=== PATIENT | male | born 1980 | race Caucasian/White ===

== ENCOUNTER 2022-02-16 08:58 | Inpatient (IN) | payer OTHER ==
[~2022-02-16] VITALS: Ht 175.3 cm; Wt 93.0 kg
[2022-02-16] VITALS (12 sets, daily range): BP systolic 89–138
[2022-02-16] MEDS ORDERED: dilTIAZem HCL IVP 5 MG/ML VIAL IVP ONE ×2 (09:15→11:15)
[2022-02-16] MEDS ORDERED: DILTIAZEM HCL 60 MG TABLET PO ONE ×3 (09:15→11:15)
[2022-02-16 09:31] LABS: BASOPHILS # (AUTO) 0.1 K/uL (0.0-0.2); EOSINOPHILS # (AUTO) 0.1 K/uL (0.0-0.4); EOSINOPHILS % (AUTO) 0.9 % (0.0-4.0); HEMATOCRIT 43.6 % (36-54); HEMOGLOBIN 14.5 g/dL (14.0-18.0); LYMPHOCYTES # (AUTO) 4.6 K/uL (1.0-5.5); MEAN CORPUSCULAR HEMOGLOBIN 27 pg (27-31); MEAN CORPUSCULAR HGB CONC 33 % (32-36); MEAN CORPUSCULAR VOLUME 83 fL (79.0-98.0); MONOCYTES # (AUTO) 0.5 K/uL (0.0-1.0); MONOCYTES % (AUTO) 4.6 % (1.7-9.3); NEUTROPHILS % (AUTO) 48.5 % (40.0-70.0); PLATELET COUNT (AUTO) 359 K/uL (130-430); RED BLOOD CELL COUNT(AUTO) 5.28 MIL/uL (4.2-6.2); RED CELL DISTRIBUTION WIDTH 15.4 % (9.0-15.0); WHITE BLOOD COUNT (AUTO) 10.3 K/uL (4.8-10.8)
[2022-02-16 09:40] LABS: PROTHROMBIN TIME 9.9 SECS (9.5-12.5)
[2022-02-16 09:48] LABS: ANION GAP 11 (5-15); CALCIUM 9.6 mg/dL (8.4-11.0); CHLORIDE 102 mmol/L (98-107); CREATININE 0.98 mg/dL (0.55-1.30); GFR AFRICAN AMERICAN 109 mL/min (>90); GLUCOSE 109 mg/dL (70-99); POTASSIUM 3.6 mmol/L (3.5-5.1); SODIUM SERUM 138 mmol/L (136-145); TOTAL BILIRUBIN 0.6 mg/dL (0.0-1.0); UREA NITROGEN, BLOOD 11 mg/dL (8-21)
[2022-02-16 09:49] LABS: ALANINE AMINOTRANSFERASE 38 U/L (12-78); ALBUMIN 4.4 g/dL (3.4-4.8); ASPARTATE AMINOTRANSFERASE 19 U/L (10-37)
[2022-02-16] MEDS ORDERED: DIGOXIN 0.5 MG/2 ML AMP IVP ONE (13:00)
[2022-02-16] MEDS ORDERED: ASPIRIN 325 MG TABLET (ECOTRIN) PO ONE (13:30)
[2022-02-16] MEDS ORDERED: PANTOPRAZOLE SODIUM 40 MG TAB PO ONE (13:30)
[2022-02-16] MEDS ORDERED: AMIODARONE HCL 200 MG TABLET PO ONE (16:45)
[2022-02-16] MEDS ORDERED: NOR10 PO (16:51)
[2022-02-16] MEDS ORDERED: LIP20 PO (16:51)
[2022-02-16] MEDS ORDERED: LISI20TA30 PO (16:51)
[2022-02-16] MEDS ORDERED: DILTIAZEM HCL 60 MG TABLET PO SCH (18:00)
[2022-02-16 19:53] LABS: BILIRUBIN,URINE NEGATIVE (NEGATIVE); CLARITY/URINE CLEAR (CLEAR); COLOR,URINE YELLOW (YELLOW); GLUCOSE,URINE NEGATIVE (NEGATIVE); KETONES,URINE 1+ (NEGATIVE); LEUKOCYTE ESTERASE ,URINE NEGATIVE (NEGATIVE); NITRITE, URINE NEGATIVE (NEGATIVE); PROTEIN URINE TRACE (NEGATIVE); UROBILINOGEN,URINE 0.2 (0.2-1.0)
[2022-02-16 19:55] LABS: BLOOD, URINE TRACE (NEGATIVE)
[2022-02-16 19:58] LABS: BACTERIA,URINE None Seen /HPF (None Seen); RBC,URINE NONE SEEN /HPF (0-3); WBC,URINE 0-3 /HPF (0-3)
[2022-02-16 19:59] LABS: MUCUS,URINE None Seen /LPF (None Seen)
[2022-02-16] MEDS ORDERED: ENOXAPARIN SODIUM 100 MG/ML SYRINGE SUBCUT SCH (21:00)
[2022-02-16] MEDS ORDERED: ENOXAPARIN SODIUM 100 MG/ML SYRINGE ONE (21:05)
[2022-02-16] MEDS: AMIODARONE HCL 200 MG TABLET PO SCH (21:11)
[2022-02-16] MEDS ORDERED: MELATONIN 5 MG TABLET PO ONE (23:43)
[2022-02-16] MEDS: MELATONIN 5 MG TABLET PO SCH (23:46)
[2022-02-16] MEDS: NACL 0.9% 1,000 ML IV SCH (23:46)
[2022-02-16] MEDS: METOPROLOL TARTRATE 5 MG/5 ML AMPUL IVP PRN (23:47)
[2022-02-17] VITALS (25 sets, daily range): BP systolic 90–144
[2022-02-17] MEDS: METOPROLOL TARTRATE 5 MG/5 ML AMPUL IVP PRN (04:22)
[2022-02-17] MEDS: AMIODARONE HCL 200 MG TABLET PO SCH ×3 (06:22→21:05)
[2022-02-17 06:38] LABS: BASOPHILS # (AUTO) 0.1 K/uL (0.0-0.2); BASOPHILS % (AUTO) 0.6 % (0.0-2.0); EOSINOPHILS % (AUTO) 0.4 % (0.0-4.0); HEMATOCRIT 41.7 % (36-54); HEMOGLOBIN 14.3 g/dL (14.0-18.0); LYMPHOCYTES # (AUTO) 3.5 K/uL (1.0-5.5); LYMPHOCYTES % (AUTO) 41.8 % (20.5-51.5); MEAN CORPUSCULAR HEMOGLOBIN 28 pg (27-31); MEAN CORPUSCULAR HGB CONC 34 % (32-36); MEAN CORPUSCULAR VOLUME 81 fL (79.0-98.0); MONOCYTES # (AUTO) 0.5 K/uL (0.0-1.0); MONOCYTES % (AUTO) 5.7 % (1.7-9.3); NEUTROPHILS # (AUTO) 4.3 K/uL (1.8-7.7); NEUTROPHILS % (AUTO) 51.5 % (40.0-70.0); PLATELET COUNT (AUTO) 345 K/uL (130-430); RED BLOOD CELL COUNT(AUTO) 5.16 MIL/uL (4.2-6.2); RED CELL DISTRIBUTION WIDTH 15.3 % (9.0-15.0); WHITE BLOOD COUNT (AUTO) 8.4 K/uL (4.8-10.8)
[2022-02-17 06:43] LABS: CALCIUM 8.3 mg/dL (8.4-11.0); CREATININE 0.91 mg/dL (0.55-1.30); POTASSIUM 3.7 mmol/L (3.5-5.1)
[2022-02-17 07:03] LABS: ALBUMIN 3.3 g/dL (3.4-4.8); FREE T4 (FREE THYROXINE) 1.2 ng/dl (0.8-1.5); THYROID STIMULATING HORMONE 2.44 uIu/mL (0.36-3.74); TOTAL BILIRUBIN 0.2 mg/dL (0.0-1.0)
[2022-02-17] MEDS: PANTOPRAZOLE SODIUM 40 MG TAB PO SCH (09:17)
[2022-02-17] MEDS: APIXABAN 2.5 MG TABLET PO SCH ×2 (09:18→20:25)
[2022-02-17] MEDS: METOPROLOL TARTRATE 50 MG TABLET PO SCH ×2 (09:18→20:26)
[2022-02-17] MEDS: ASPIRIN 81 MG TABLET(ECOTRIN) PO SCH (09:18)
[2022-02-17] MEDS: NACL 0.9% 1,000 ML IV SCH (09:35)
[2022-02-17] MEDS: MELATONIN 5 MG TABLET PO SCH (20:26)
[2022-02-18] VITALS (11 sets, daily range): BP systolic 88–129
[2022-02-18] MEDS: AMIODARONE HCL 200 MG TABLET PO SCH ×3 (05:55→21:14)
[2022-02-18 06:12] LABS: BASOPHILS # (AUTO) 0.1 K/uL (0.0-0.2); BASOPHILS % (AUTO) 0.8 % (0.0-2.0); EOSINOPHILS # (AUTO) 0.1 K/uL (0.0-0.4); EOSINOPHILS % (AUTO) 0.9 % (0.0-4.0); HEMATOCRIT 42.1 % (36-54); HEMOGLOBIN 14.2 g/dL (14.0-18.0); LYMPHOCYTES # (AUTO) 4.2 K/uL (1.0-5.5); LYMPHOCYTES % (AUTO) 41.7 % (20.5-51.5); MEAN CORPUSCULAR HEMOGLOBIN 27 pg (27-31); MEAN CORPUSCULAR HGB CONC 34 % (32-36); MEAN CORPUSCULAR VOLUME 82 fL (79.0-98.0); MONOCYTES # (AUTO) 0.4 K/uL (0.0-1.0); MONOCYTES % (AUTO) 4.2 % (1.7-9.3); NEUTROPHILS # (AUTO) 5.3 K/uL (1.8-7.7); NEUTROPHILS % (AUTO) 52.4 % (40.0-70.0); PLATELET COUNT (AUTO) 347 K/uL (130-430); RED BLOOD CELL COUNT(AUTO) 5.16 MIL/uL (4.2-6.2); RED CELL DISTRIBUTION WIDTH 15.1 % (9.0-15.0); WHITE BLOOD COUNT (AUTO) 10.2 K/uL (4.8-10.8)
[2022-02-18 06:37] LABS: CALCIUM 8.8 mg/dL (8.4-11.0); CREATININE 0.98 mg/dL (0.55-1.30); POTASSIUM 4.3 mmol/L (3.5-5.1)
[2022-02-18] MEDS: ASPIRIN 81 MG TABLET(ECOTRIN) PO SCH (08:28)
[2022-02-18] MEDS: APIXABAN 2.5 MG TABLET PO SCH ×2 (08:29→21:11)
[2022-02-18] MEDS: PANTOPRAZOLE SODIUM 40 MG TAB PO SCH (08:30)
[2022-02-18] MEDS: METOPROLOL TARTRATE 50 MG TABLET PO SCH ×2 (08:30→21:11)
[2022-02-18] MEDS ORDERED: MELATONIN 5 MG TABLET PO ONE (21:10)
[2022-02-18] MEDS: MELATONIN 5 MG TABLET PO SCH (21:11)
[2022-02-19 00:20] VITALS: BP_SYST 89
[2022-02-19] MEDS: AMIODARONE HCL 200 MG TABLET PO SCH ×3 (06:19→15:06)
[2022-02-19 07:07] LABS: BASOPHILS % (AUTO) 0.5 % (0.0-2.0); EOSINOPHILS # (AUTO) 0.1 K/uL (0.0-0.4); EOSINOPHILS % (AUTO) 0.6 % (0.0-4.0); HEMOGLOBIN 14.6 g/dL (14.0-18.0); LYMPHOCYTES # (AUTO) 3.9 K/uL (1.0-5.5); MEAN CORPUSCULAR HEMOGLOBIN 28 pg (27-31); MEAN CORPUSCULAR HGB CONC 34 % (32-36); MEAN CORPUSCULAR VOLUME 82 fL (79.0-98.0); MONOCYTES # (AUTO) 0.5 K/uL (0.0-1.0); MONOCYTES % (AUTO) 4.8 % (1.7-9.3); NEUTROPHILS # (AUTO) 5.6 K/uL (1.8-7.7); NEUTROPHILS % (AUTO) 55.1 % (40.0-70.0); PLATELET COUNT (AUTO) 347 K/uL (130-430); RED BLOOD CELL COUNT(AUTO) 5.26 MIL/uL (4.2-6.2); RED CELL DISTRIBUTION WIDTH 15.5 % (9.0-15.0); WHITE BLOOD COUNT (AUTO) 10.1 K/uL (4.8-10.8)
[2022-02-19 07:56] LABS: ALBUMIN 3.3 g/dL (3.4-4.8); CALCIUM 8.7 mg/dL (8.4-11.0); CREATININE 1.01 mg/dL (0.55-1.30); POTASSIUM 3.9 mmol/L (3.5-5.1); TOTAL BILIRUBIN 0.3 mg/dL (0.0-1.0)
[2022-02-19 08:00] VITALS: BP_SYST 120
[2022-02-19] MEDS: ASPIRIN 81 MG TABLET(ECOTRIN) PO SCH (08:50)
[2022-02-19] MEDS: PANTOPRAZOLE SODIUM 40 MG TAB PO SCH (08:53)
[2022-02-19] MEDS: METOPROLOL TARTRATE 50 MG TABLET PO SCH (08:53)
[2022-02-19] MEDS: APIXABAN 2.5 MG TABLET PO SCH (09:00)
[2022-02-19 09:02] VITALS: BP_SYST 120
[2022-02-19 15:20] VITALS: BP_SYST 113
[2022-02-19] MEDS ORDERED: APIX5TAB4 PO (16:37)
[2022-02-19] MEDS ORDERED: AMIO200T66 PO (16:37)
[2022-02-19] MEDS ORDERED: METO50TA7 PO (16:37)
== END 2022-02-19 16:50 | disposition home or self-care (01) | DRG 309 ==
LOC: SED 08:58 → STU 11:01 → SIC 13:17 → STU 02-18 09:21
PROVIDERS: ADMIT Internal Medicine; ATTEND Internal Medicine
DX: I48.0 Paroxysmal atrial fibrillation (principal); E44.1 Mild protein-calorie malnutrition; I10 Essential (primary) hypertension; Z20.822 Contact with and (suspected) exposure to COVID-19; E78.5 Hyperlipidemia, unspecified; E66.01 Morbid (severe) obesity due to excess calories; Z79.899 Other long term (current) drug therapy; Z68.30 Body mass index [BMI] 30.0-30.9, adult
CPT/HCPCS: 36415; 71045; 80048; 80053; 80061; 81000; 83735; 83880; 84439; 84443; 84484; 85025; 85610-TC; 85730-TC; 87081; 93005; 93306; 93880; 96374; 96375; 99285; G0378; J1160; J1650; J3490; J7060